=== PATIENT | female | born 1985 | race Caucasian/White ===

== ENCOUNTER 2022-09-22 11:43 | Inpatient (IN) | payer SELFPAY ==
[2022-09-22] VITALS (18 sets, daily range): BP systolic 123–159; BP diastolic 76–102; PULSE 70–116; RESP 14–20; TEMP 36.9–38.6; O2SAT 87–100; BMI 47.8
[2022-09-22] MEDS: ondansetron 2 mg/ML SDV 2 mL 4 MG IVP (13:04)
[2022-09-22] MEDS: morphine 4 mg/mL SDV 1 mL IVP (13:09)
[2022-09-22] MEDS: sodium chloride 0.9% 1,000 ML 999 ML IV (13:13)
--- NOTE | 2022-09-22 13:14 | CTR_ITS ---
PROCEDURE INFORMATION: Exam: CT Abdomen And Pelvis Without Contrast Exam date and time: 09/22/2022 2:16 PM Age: 37 years old Clinical indication: Abdominal pain; Flank; Left; Prior surgery; Surgery date: 6+ months; Additional info: Left flank pain TECHNIQUE: Imaging protocol: Computed tomography of the abdomen and pelvis without contrast. Radiation optimization: All CT scans at this facility use at least one of these dose optimization techniques: automated exposure control; mA and/or kV adjustment per patient size (includes targeted exams where dose is matched to clinical indication); or iterative reconstruction. COMPARISON: No relevant prior studies available. RADIATION DOSE METRICS: Total DLP (mGy-cm): 1414.17 FINDINGS: Liver: Findings consistent with fatty infiltration of the liver are identified. Gallbladder and bile ducts: There has been a cholecystectomy. Pancreas: Normal. No ductal dilation. Spleen: Normal. No splenomegaly. Adrenal glands: Normal. No mass. Kidneys and ureters: There is a 0.4 cm calcification at the left UVJ resulting in mild left hydroureteronephrosis. There is edema of the left kidney. No renal calcifications. Stomach and bowel: Unremarkable. No obstruction. No mucosal thickening. Appendix: No evidence of appendicitis. Intraperitoneal space: Unremarkable. No free air. No significant fluid collection. Vasculature: Unremarkable. No abdominal aortic aneurysm. Lymph nodes: Unremarkable. No enlarged lymph nodes. Urinary bladder: Unremarkable as visualized. Reproductive: Unremarkable as visualized. Bones/joints: Unremarkable. No acute fracture. Soft tissues: Unremarkable. CT/CT kidney stone [id number] IMPRESSION: There is a 0.4 cm calcification at the left UVJ resulting in mild left hydroureteronephrosis.
[2022-09-22 13:35] LABS: Basophils # 0.1 10^3/uL (0.0-0.1); Basophils % 0.6 %; Eosinophils # 0.2 10^3/uL (0.0-0.8); Eosinophils % 1.3 %; Hematocrit 36.3 % (37.0-47.0); Hemoglobin 12.2 g/dL (11.5-15.3); Lymphocytes # 1.7 10^3/uL (0.8-4.8); Lymphocytes % 12.2 %; Mean Corpuscular HGB Conc 33.6 g/dL (30.0-36.0); Mean Corpuscular Hemoglobin 29.5 pg (28.0-34.0); Mean Corpuscular Volume 87.9 fl (81-99); Mean Platelet Volume 10.4 fL (7.4-10.4); Monocytes # 0.6 10^3/uL (0.2-0.9); Monocytes % 4.6 %; Neutrophils # 10.96 10^3/uL (1.8-7.7); Neutrophils % 80.8 %; Nucleated Red Blood Cells % 0 %; Platelet Count 336 10^3/cmm (130-400); Red Blood Count 4.13 10^6/uL (4.1-5.3); Red Cell Distribution Width 13.6 % (12.1-15.1); White Blood Count 13.6 10^3/uL (4.0-10.0)
[2022-09-22] MEDS: HYDROmorphone 1 mg/mL INJ 1 mL IVP (13:55)
[2022-09-22 13:59] LABS: Alanine Aminotransferase 39 U/L (0-33); Albumin Level 4.5 g/dL (3.5-5.2); Alkaline Phosphatase 92 U/L (35-105); Aspartate Amino Transferase 26 U/L (0-32); Blood Urea Nitrogen 15 mg/dL (6-20); Calcium 9.2 mg/dL (8.5-10.5); Carbon Dioxide 19 mmol/L (22-29); Chloride 103 mmol/L (98-107); Globulin 2.8 g/dL (1.3-4.6); Glomerular Filtration Rate 95.2 mL/min (90-130); Glucose 149 mg/dL (65-115); Lipase 40 U/L (13-60); Osmolality Calculated 286 mOsm/kg (285-295); Sodium 136 mmol/L (136-145); Total Bilirubin 0.6 mg/dL (0.15-1.2); Total Protein 7.3 g/dL (6.6-8.7)
[2022-09-22 14:03] LABS: Anion Gap 18.3 (5-19); Potassium 4.3 mmol/L (3.5-5.1)
[2022-09-22 16:30] LABS: HCG Qualitative Urine. Negative (Negative)
[2022-09-22] MEDS: haloperidol inj 5 mg/mL INJ 1 mL IVP (16:36)
[2022-09-22 16:41] LABS: Add Urine Microscopic? YES; Bilirubin Urine Neg (Negative); Blood Urine 3+ (Negative); Glucose Urine UA Norm (Normal); Ketones Urine Negative (Negative); Leukocyte Esterase Urine 1+ (Negative); Nitrate Urine Positive (Negative); Protein Urine 1+ (Negative); RBC Urine 40-50 /hpf (0-2); Specific Gravity, Urine 1.015 (1.005-1.030); Urine Appearance Cloudy (CLEAR); Urine Color Yellow (Yellow); Urobilinogen Urine 1 mg/dL (Negative); WBC Urine 15-25 /hpf (0-5); pH Urine 6 (5-7)
[2022-09-22 16:42] LABS: Add Urine Culture? Yes; Bacteria Urine 4+ /hpf; Squamous Epithelial Cell Urine 0-4 /hpf (0-5)
[2022-09-22] MEDS: cefTRIAXone 1,000 MG in sodium chloride 0.9% (plus) 50 ML 100 MG IV (17:40)
--- NOTE | 2022-09-22 18:14 | P.HP_ITS ---
Providers/Chief Complaint Admitting Physician: Serena Sears MD Chief Complaint: lower left back/flank pain History of Present Illness Linda Mo is a 37 year old female without past medical history presented today for chief complaint of flank pain which started this morning. She was experiencing multiple episode of emesis, endorsing hot flashes however she did not take her temperature, endorsing urinary frequency and burning, she initially attributed her symptoms to her menstrual pain, took ibuprofen but her symptoms were not resolving, because of recurrent vomiting and abdominal pain she decided come to the hospital for further evaluation. In the ER she has been diagnosed with complicated UTI with 0.4 cm calcification at the left UVJ with left hydroureteronephrosis I have requested ER MEDICINE TEACHER to get Dr. Luna consult. Patient will be kept n.p.o. after midnight. No active signs of sepsis She has received opioids, IV fluids and antibiotics. Review of Systems Const: Reports: chills Eyes: Denies: change in vision ENMT: Denies: throat pain Card: Denies: chest pain Resp: Denies: dyspnea GI: Reports: abdominal pain, nausea and vomiting : Reports: flank pain, difficulty voiding and urinary frequency Musc: Denies: neck pain Skin/Breast: Denies: rash Neuro: Denies: headache(s) Psych: Denies: anxiety Endo: Denies: polyuria Bill/Lymph: Denies: easy bruising All/Imm: Denies: urticaria Medications/Allergies Home Medications Medication Instructions Recorded Confirmed Last Taken Type No Known Home Medications 09/22/22 09/22/22 Unknown History Allergies Allergy/AdvReac Type Severity Reaction Status Date / Time hydrocodone Allergy ADR-Nausea Verified 09/22/22 12:05 PFSH Acute PFSH: Medical History (Updated 09/22/22 @ 18:17 by Serena Sears MD) No pertinent past medical history Surgical History (Updated 09/22/22 @ 18:17 by Serena Sears MD) S/P cholecystectomy Tubal ligation status Family History (Updated 09/22/22 @ 18:18 by Serena Sears MD) Denies family history of CAD (coronary artery disease) Social History (Updated 09/22/22 @ 18:18 by Serena Sears MD) Smoking and tobacco status: never smoked Alcohol intake: never Substance/Drug Use: never Household members: spouse Housing: House Vitals/I&O/Wt Last Vital Signs Temp 98.6 F 09/22/22 12:06 Pulse 99 09/22/22 18:05 Resp 14 09/22/22 18:05 BP 145/101 09/22/22 18:00 Pulse Ox 96 09/22/22 18:05 O2 Del Method 09/22/22 18:05 O2 Flow Rate 2 09/22/22 18:00 09/22/22 09/22/22 09/22/22 06:59 14:59 22:59 Intake Total 1000 / 1000 Balance 1000 / 1000 Weight last 48 hrs Weight 136.078 kg Physical Exam Narrative: Motor abilities female Currently not in any active distress CVA tenderness positive Awake and alert Nonfocal neuro exam Hypertensive Doing well on room air Appropriate mood and affect at the bedside No audible stridor or wheezing S1, S2 Data 09/22/22 13:18 09/22/22 13:18 Micro: Microbiology 09/22/22 17:22 Blood Culture - Preliminary Blood SPECIMEN COLLECTED 09/22/22 17:27 Blood Culture - Preliminary Blood SPECIMEN COLLECTED A&P Assessment and plan (1) UTI (urinary tract infection): Plan Complicated UTI calcification left UVJ, left CVA tenderness positive Hydroureteronephrosis No active signs of sepsis Patient will be kept n.p.o. after midnight Dr. Luna consulted Continue ceftriaxone IV fluid hydration overnight Opioids and bowel regimen Full code Attestations Medical Necessity Statement*: More than 2 midnights anticipated more than 2 midnights anticipated Time Spent in Patient Care: 40 Coding Level of Care Code Acute Assistant Golf Course Superintendent for g Fwd Diagnoses UTI (urinary tract infection) N39.0
[2022-09-22 18:55] LABS: Procalcitonin 0.07 ng/mL (0-0.5)
[2022-09-22] MEDS: ketorolac 30 mg/mL INJ 15 MG IVP (20:00)
[2022-09-22] MEDS: sodium chloride 0.9% 1,000 ML 100 ML IV (20:01)
--- NOTE | 2022-09-22 20:39 | PM.CONSULT ---
Providers/Reason For Consult Consulting Physician/Specialty*: Urology/Luna Reason for Consult*: Left distal ureteral stone with UTI Requesting Physician: Dr. Sears Attending Physician: Serena Sears MD History of Present Illness History of Present Illness Linda Mo is a 37 year old female who I evaluated for the first time today after admission to the emergency department for acute onset earlier this morning of poorly controlled left renal colic secondary to a 4 mm left distal ureteral stone complicated by UTI in the absence of systemic infectious symptoms. Was not able to be managed on outpatient basis primarily because of her symptoms. Has been started on antibiotics. In addition to the renal colicky symptoms she also had irritative voiding symptoms probably customer solutions representative of UTI and/or stone in the distal ureteral location. Denies prior stones Denied any history of recurrent UTIs or any real obvious UTI type symptoms prior to the onset of pain. Denied fever. Work-up: CT scan showed mild obstructive changes from the distal ureteral stone. No additional stones were seen. UA: Nitrite positive. 15-25 white cells, Creatinine: 0.7 WBC: 13.6, hemoglobin 12.2. Vital signs since admission has shown low-grade temp, sustained blood pressure, no tachypnea or tachycardia. Plans: 1. Increase Rocephin to twice a day 2. Strain all void 3. Increase IV fluids 4. KUB in the morning 5. If she has not passed the stone then plan on at least cystoscopy and stent placement in the morning or if doing well from an infectious perspective cystoscopy, retrograde, ureteroscopy, laser, stent. Review of Systems Const: Denies: fever(s) Eyes: Denies: change in vision or yellow eyes ENMT: Denies: hoarseness Card: Denies: chest pain or palpitations Resp: Denies: dyspnea, productive cough or wheezing GI: Reports: abdominal pain, nausea and vomiting; Denies: diarrhea : Reports: flank pain and urinary frequency Musc: Reports: back pain; Denies: joint redness Skin/Breast: Denies: rash or new lesions Neuro: Denies: confusion, behavioral changes or Slurred speech present Psych: Denies: memory loss or difficulty concentrating Endo: Denies: polyuria or flushing Bill/Lymph: Denies: easy bruising or easy bleeding All/Imm: Denies: acute wheezing Medications/Allergies Home Medications Medication Instructions Recorded Confirmed Last Taken Type No Known Home Medications 09/22/22 09/22/22 Unknown History Allergies Allergy/AdvReac Type Severity Reaction Status Date / Time hydrocodone Allergy ADR-Nausea Verified 09/22/22 12:05 Current Medications Generic Name Dose Route Start Last Admin Trade Name Freq PRN Reason Stop Dose Admin Sodium Chloride 1,000 mls @ 100 mls/hr 09/22/22 18:56 09/22/22 20:01 Sodium Chloride 0.9% IV 100 mls/hr .Q10H TOO Administration Ketorolac Tromethamine 15 mg 09/22/22 18:56 09/22/22 20:00 Ketorolac 30 Mg/Ml Inj IVP 09/27/22 18:55 15 mg Q6H PRN Administration Renal colic PFSH Acute PFSH: Medical History (Updated 09/22/22 @ 20:47 by Joshua Luna MD) No pertinent past medical history UTI (urinary tract infection) Surgical History S/P cholecystectomy Tubal ligation status Family History Denies family history of CAD (coronary artery disease) Social History Smoking and tobacco status: never smoked Alcohol intake: never Substance/Drug Use: never Household members: spouse Housing: House Female Reproductive History: Date of last menstrual period: 09/22/22 Vitals/I&O/Wt Last Vital Signs Temp 99.7 F H 09/22/22 18:30 Pulse 98 09/22/22 18:30 Resp 18 09/22/22 18:30 BP 135/88 09/22/22 18:30 Pulse Ox 89 L 09/22/22 18:30 O2 Del Method 09/22/22 18:30 O2 Flow Rate 2 09/22/22 18:00 09/22/22 09/22/22 09/22/22 06:59 14:59 22:59 Intake Total 1050 / 1050 Balance 1050 / 1050 Weight last 48 hrs Weight 333 lb 4.8 oz Weight 300 lb Physical Exam Const: COMMON NORMALS: average body habitus, patient oriented x3, alert and well nourished GENERAL APPEARANCE: well kempt and well developed ORIENTATION/CONSCIOUSNESS: not confused OTHER: Morbid obesity No severe distress but is uncomfortable. HENMT: COMMON NORMALS: normocephalic HEAD & SCALP: normal to inspection and normocephalic Eye: COMMON NORMALS: conjunctivae normal and no scleral icterus CONJUNCTIVA: Yes conjunctivae normal Neck/C-Spine: GENERAL: Yes normal visual inspection Lymph: LYMPHATIC: no lymphadenopathy noted and no lymphedema noted Chest: OTHER: Normal chest movement Resp: COMMON NORMALS: normal respiratory effort EFFORT & INSPECTION: Yes able to speak in complete sentences, No labored and No Actively coughing OTHER: No audible wheezes, good air movement. Diminished breath sounds. Cardio: OTHER: Regular rate and rhythm could not hear any murmurs GI: OTHER: Tender left abdomen upper and lower : OTHER: Nondistended bladder Extremity: COMMON NORMALS: no clubbing, cyanosis or edema Neuro: COMMON NORMALS: patient oriented x3 and no focal motor deficits SENSORIUM/ORIENTATION: Yes alert Psych: COMMON NORMALS: mental status grossly normal APPEARANCE: Yes grossly normal and Yes well kempt ATTITUDE: Yes calm and Yes engaged Skin: COMMON NORMALS: no rashes or lesions noted and no jaundice GENERAL SKIN EXAM: no rashes or lesions noted Data 09/22/22 13:18 09/22/22 13:18 Micro: Microbiology 09/22/22 17:22 Blood Culture - Preliminary Blood SPECIMEN COLLECTED 09/22/22 17:27 Blood Culture - Preliminary Blood SPECIMEN COLLECTED Other data: I reviewed her CT scan and labs. A&P Assessment and plan (1) Left ureteral calculus: (2) UTI (urinary tract infection): No real symptoms of UTI leading up to the event. Plan 1. Increase Rocephin to twice a day 2. Strain all void 3. Increase IV fluids 4. KUB in the morning 5. If she has not passed the stone then plan on at least cystoscopy and stent placement in the morning or if doing well from an infectious perspective cystoscopy, retrograde, ureteroscopy, laser, stent. Consult Attestations Medical Necessity Statement: Refractory pain, left ureteral stone, UTI. IV fluids, parenteral antibiotics, likely surgical intervention in a.m. unless she passes a stone. Time Spent in Patient Care: Greater than 35 minutes Chart review, x-ray review, patient interview and counseling, documentation, surgical plan 65 Minutes Coding Level of Care Code Acute Wiring Mechanic for Chg Fwd Diagnoses Left ureteral calculus N20.1 UTI (urinary tract infection) N39.0 Time Spent (min) 65
--- NOTE | 2022-09-22 21:57 | W.ED.ABDPA2 ---
HPI - Abdominal Pain General: Chief Complaint: Abdominal Pain Stated Complaint: lower left back/flank pain Time Seen by Provider: 09/22/22 12:35 History of Present Illness: 37 yo female patient presents to ER with left sided flank pain onset today. Pt c/o nausea and vomiting. Pt denies hx of kidney stones or urinary sx. Pt denies fever. Pt states pain radiates around to side but denies abd pain. Pt denies chest pain or SOB. Associated Symptoms: Denies change in bowel habits, chills, constipation, GI cramping, diarrhea, dysuria, fever(s), hematuria, hematemesis and syncope Related Data: Date of Last Menstrual Period: 09/22/22 Review of Systems Const: Denies: fever(s), chills, body aches, change in appetite, change in weight, fatigue, malaise or diaphoresis Eyes: Denies: change in vision, blurry vision, blind spots, photophobia, eye discomfort, eye discharge, eye redness, floaters or seeing flashes ENMT: Denies: throat pain, uvular edema, enlarged tonsils, odynophagia, hoarseness, mouth pain, swelling of lips/tongue, oral sores, bleeding gums, dental pain, dry mouth, ear or mastoid pain, ear discharge, change in hearing, tinnitus, disequilibrium, nasal discharge, nasal congestion, post nasal drip or sinus pain Card: Denies: chest pain, palpitations, irregular heart rhythm, edema, swelling of feet/ankles, lightheadedness, syncope, pre-syncope, dyspnea on exertion, orthopnea, leg pain with exertion or acrocyanosis Resp: Denies: dyspnea, productive cough, non-productive cough, wheezing, stridor, pain on inspiration, change in phlegm color, hemoptysis or chest congestion GI: Denies: abdominal pain, hematemesis, dysphagia, diarrhea, constipation, GI cramping, change in bowel habits or rectal pain : Denies: difficulty voiding, dysuria, urinary frequency, urinary urgency, urinary hesitancy or hematuria Musc: Denies: neck pain, back pain, extremity pain, extremity swelling, joint pain, joint swelling, joint redness, joint warmth or deformity Skin/Breast: Denies: rash, pruritus, erythema, sores, new lesions, changes in skin color or dry skin Neuro: Denies: headache(s), numbness in extremities, weakness in extremities, sensory changes, lack of coordination, difficulty walking, frequent falls, dizziness, vertigo, confusion, behavioral changes, Slurred speech present, difficulty communicating thoughts or seizure-like activity Psych: Denies: anxiety, depression, suicidal ideation or homicidal ideation Endo: Denies: polyuria, polydipsia, tired all the time, cold intolerance, excessive sweating, flushing, hot flashes or heat intolerance Bill/Lymph: Denies: easy bruising, easy bleeding, petechiae, purpura, enlarged lymph nodes or tender lymph nodes All/Imm: Denies: urticaria, throat swelling, tongue swelling, facial swelling, acute wheezing or itchy eyes PFSH ED PFSH: Medical History No pertinent past medical history UTI (urinary tract infection) Surgical History S/P cholecystectomy Tubal ligation status Family History Denies family history of CAD (coronary artery disease) Social History Smoking and tobacco status: never smoked Alcohol intake: never Substance/Drug Use: never Household members: spouse Housing: House Female Reproductive History: Date of last menstrual period: 09/22/22 Physical Exam Const: COMMON NORMALS: no acute distress, average body habitus, patient oriented x3, no limitations, healthy appearing, alert and well nourished HENMT: COMMON NORMALS: normocephalic HEAD & SCALP: normocephalic THROAT: no uvular edema Lymph: LYMPHATIC: no lymphadenopathy noted Resp: COMMON NORMALS: normal respiratory effort, No retractions, No use of accessory muscles, clear to auscultation bilaterally and percussion normal AUSCULTATION: clear to auscultation bilaterally PERCUSSION: percussion normal Cardio: COMMON NORMALS: regular rate and regular rhythm RATE: regular rate RHYTHM: regular rhythm GI: COMMON NORMALS: Normal to inspection, nondistended, normoactive bowel sounds present, Soft to palpation, non-tender, No hepatosplenomegaly present, no masses and no bruits PALPATION: Yes Soft to palpation and Yes No hepatosplenomegaly present : BLADDER/KIDNEY EXAM: Yes CVA tenderness Back/Pelvis: GENERAL BACK: Yes CVA tenderness Neuro: COMMON NORMALS: patient oriented x3 SENSORIUM/ORIENTATION: Yes alert Skin: COMMON NORMALS: no rashes or lesions noted and turgor normal GENERAL SKIN EXAM: no rashes or lesions noted, elasticity normal, turgor normal and no erythema Course Vital Signs: Vital signs: Vital Signs Temperature 101.4 F H 09/22/22 20:00 Pulse Rate 112 H 09/22/22 21:53 Respiratory Rate 14 09/22/22 21:53 Blood Pressure 128/80 09/22/22 20:00 Pulse Oximetry 92 09/22/22 21:53 Oxygen Delivery Me thod 09/22/22 21:53 Oxygen Flow Rate 2 09/22/22 18:00 MDM - Abdominal Pain Medical Decision Making 37 yo female patient presents to ER with left sided flank pain onset today. Pt c/o nausea and vomiting. Pt denies hx of kidney stones or urinary sx. Pt denies fever. Pt states pain radiates around to side but denies abd pain. Pt denies chest pain or SOB. Pt continues to cry out in pain. Pt took motrin CONDUIT BENDER. Morphine and zofran given without relief. will try diaudid. Ct shows 4mm renal stone in the UVG with mild hdro urine is nitrate positive. Pts pain is still not controlled at this time pt is actively vominting. 1 liter normal saline given will give Haldol. Given patients pain is not controlled I will plan to admit at this time. Dr. Luna consulted on patient Lab Data 09/22/22 13:18 09/22/22 13:18 Labs/Radiology: Radiology Impressions Abdomen/Pelvis CT 09/22/22 13:14 IMPRESSION: There is a 0.4 cm calcification at the left UVJ resulting in mild left hydroureteronephrosis. Laboratory Results WBC 13.6 10^3/uL (4.0-10.0) H 09/22/22 13:18 RBC 4.13 10^6/uL (4.1-5.3) 09/22/22 13:18 Hgb 12.2 g/dL (11.5-15.3) 09/22/22 13:18 Hct 36.3 % (37.0-47.0) L 09/22/22 13:18 MCV 87.9 fl (81-99) 09/22/22 13:18 MCH 29.5 pg (28.0-34.0) 09/22/22 13:18 MCHC 33.6 g/dL (30.0-36.0) 09/22/22 13:18 RDW 13.6 % (12.1-15.1) 09/22/22 13:18 Plt Count 336 10^3/cmm (130-400) 09/22/22 13:18 MPV 10.4 fL (7.4-10.4) 09/22/22 13:18 Neut % (Auto) 80.8 % 09/22/22 13:18 Lymph % (Auto) 12.2 % 09/22/22 13:18 [place] % (Auto) 4.6 % 09/22/22 13:18 Eos % (Auto) 1.3 % 09/22/22 13:18 Baso % (Auto) 0.6 % 09/22/22 13:18 Neut # (Auto) 10.96 10^3/uL (1.8-7.7) H 09/22/22 13:18 Lymph # (Auto) 1.7 10^3/uL (0.8-4.8) 09/22/22 13:18 [place] # (Auto) 0.6 10^3/uL (0.2-0.9) 09/22/22 13:18 Eos # (Auto) 0.2 10^3/uL (0.0-0.8) 09/22/22 13:18 Baso # (Auto) 0.1 10^3/uL (0.0-0.1) 09/22/22 13:18 Nucleated RBC % (auto) 0 % 09/22/22 13:18 Nucleated RBCs # 0.0 /100WBC 09/22/22 13:18 Sodium 136 mmol/L (136-145) 09/22/22 13:18 Potassium 4.3 mmol/L (3.5-5.1) 09/22/22 13:18 Chloride 103 mmol/L (98-107) 09/22/22 13:18 Carbon Dioxide 19 mmol/L (22-29) L 09/22/22 13:18 Anion Gap 18.3 (5-19) 09/22/22 13:18 BUN 15 mg/dL (6-20) 09/22/22 13:18 Creatinine 0.7 mg/dL (0.5-0.9) 09/22/22 13:18 GFR Calculation 95.2 mL/min (90-130) 09/22/22 13:18 Glucose 149 mg/dL (65-115) H 09/22/22 13:18 Calculated Osmolality 286 mOsm/kg (285-295) 09/22/22 13:18 Calcium 9.2 mg/dL (8.5-10.5) 09/22/22 13:18 Total Bilirubin 0.6 mg/dL (0.15-1.2) 09/22/22 13:18 AST 26 U/L (0-32) 09/22/22 13:18 ALT 39 U/L (0-33) H 09/22/22 13:18 Alkaline Phosphatase 92 U/L (35-105) 09/22/22 13:18 Total Protein 7.3 g/dL (6.6-8.7) 09/22/22 13:18 Albumin 4.5 g/dL (3.5-5.2) 09/22/22 13:18 Globulin 2.8 g/dL (1.3-4.6) 09/22/22 13:18 Lipase 40 U/L (13-60) 09/22/22 13:18 Procalcitonin 0.07 ng/mL (0-0.5) 09/22/22 13:15 HCG, Qual Negative (Negative) 09/22/22 16:18 Urine Color Yellow (Yellow) 09/22/22 16:18 Urine Appearance Cloudy (CLEAR) A 09/22/22 16:18 Urine pH 6 (5-7) 09/22/22 16:18 Ur Specific [place] 1.015 (1.005-1.030) 09/22/22 16:18 Urine Protein 1+ (Negative) H 09/22/22 16:18 Urine Glucose (UA) Norm (Normal) 09/22/22 16:18 Urine Ketones Negative (Negative) 09/22/22 16:18 Urine Blood 3+ (Negative) H 09/22/22 16:18 Urine Nitrate Positive (Negative) H 09/22/22 16:18 Urine Bilirubin Neg (Negative) 09/22/22 16:18 Urine Urobilinogen 1 mg/dL (Negative) H 09/22/22 16:18 Ur Leukocyte Esterase 1+ (Negative) H 09/22/22 16:18 Urine RBC 40-50 /hpf (0-2) H 09/22/22 16:18 Urine WBC 15-25 /hpf (0-5) H 09/22/22 16:18 Ur Squamous Epith Cells 0-4 /hpf (0-5) H 09/22/22 16:18 Amorphous Sediment Not Reportable 09/22/22 16:18 Urine Bacteria 4+ /hpf (NONE) H 09/22/22 16:18 Discharge Plan Discharge Patient Disposition: Admitted As Inpatient Admit Provider: Serena Sears Clinical Impression: Left ureteral calculus Coding Level of Care Code ED Store Receiving Clerk for Jose M Malhotra
[2022-09-22 22:09] LABS: Estmated Average Glucose 108; Hemoglobin A1C 5.4 % (4.0-6.0)
[2022-09-22] MEDS: acetaminophen 500 mg Tablet PO (23:50)
[2022-09-23] VITALS (18 sets, daily range): BP systolic 100–128; BP diastolic 52–88; PULSE 89–103; RESP 16–20; TEMP 36.5–37.4; O2SAT 92–97
[2022-09-23] MEDS: ketorolac 30 mg/mL INJ 15 MG IVP (03:45)
[2022-09-23] MEDS: sodium chloride 0.9% 1,000 ML 150 ML IV (03:45)
--- NOTE | 2022-09-23 04:17 | PC.NURSE ---
Patients states she was told had a reaction to anesthesia in the past but states it was because she was given hydrocodone which she is allergic to.
[2022-09-23] MEDS: cefTRIAXone 1,000 MG in sodium chloride 0.9% (plus) 50 ML 100 MG IV ×2 (05:34→17:37)
--- NOTE | 2022-09-23 06:00 | XRR_ITS ---
PROCEDURE INFORMATION: Exam: XR Abdomen Exam date and time: 09/23/2022 6:30 AM Age: 37 years old Clinical indication: Other: Back pain; Prior surgery; Surgery type: Gb; Additional info: F/u left uvj stone TECHNIQUE: Imaging protocol: Radiologic exam of the abdomen. Views: Frontal supine view of the abdomen. 1 View. COMPARISON: CT kidney stone [id number] 09/22/2022 2:16 PM FINDINGS: Gastrointestinal tract: Normal. No bowel dilation. Organs: Cholecystectomy clips. Similar tiny calcification projecting over the left aspect of the pelvis, which may be positioned at the left ureterovesical junction. Bones/joints: Unremarkable. XR/XR KUB [id number] IMPRESSION: Similar tiny calcification projecting over the left aspect of the pelvis, which may be positioned at the left ureterovesical junction.
--- NOTE | 2022-09-23 07:12 | P.MISC_ITS ---
Miscellaneous Note Note: Hospital day #2, urology follow-up Still symptomatic. Has not passed the stone. No septic symptoms. Has been afebrile since about 8 PM last night. KUB reviewed this morning and there is a calcification consistent with a stone seen on CT scan in roughly the same position. Reviewed our conversation again last night with the procedure plan being a cystoscopy, left retrograde ureteroscopy laser stent. Also reviewed that she will have a stent in place when she goes back to [place] and the importance of having it removed. She agreed to proceed as planned. No contraindications to surgery.
[2022-09-23] MEDS: sodium chloride 0.9% 1,000 ML 30 ML IV (07:39)
--- NOTE | 2022-09-23 07:41 | ANES.PREANE2 ---
Pre-Anesthetic Assessment Height/Weight: Height 1.78 m Weight 151.182 kg Temp Pulse Resp BP Pulse Ox O2 Del Method O2 Flow Rate 99.4 F 102 H 20 H 117/88 96 2 09/23/22 07:05 09/23/22 07:05 09/23/22 07:05 09/23/22 07:05 09/23/22 07:05 09/23/22 07:05 09/22/22 18:00 Operation Date: 09/23/22 08:00 Proposed Procedures p Cystoscopy(Not Applicable) - Joshua Luna MD s Retrograde Pyelogram(Left) - Joshua Luna MD s Ureteroscopy(Left) - Joshua Luna MD s Laser Lithotripsy(Left) - Joshua Luna MD s Ureteral Stent Placement(Left) - Joshua Luna MD Familial anesthetic complications: none- PONV Was Beta Magdy taken within 24 hours: N/A Was Clonidine taken within 24 hours: N/A Last intake: Intake Last Liquid Date 09/22/22 Last Liquid Time 23:00 Social No alcohol and No tobacco Airway Submandibular: within normal limits Cervical ROM: within normal limits Mallampati: Class III Dentition: full Pulmonary None reported CV/HEM None reported None reported current stone no other issues Hepatic None reported GI None reported Metabolic Morbid Obesity Musc/skel None reported Neuropsych Anxiety Anesthetic Plan ASA status: 2 Anesthesia: General Medications/Allergies Home Medications Medication Instructions Recorded Confirmed Last Taken Type No Known Home Medications 09/22/22 09/22/22 Unknown History Allergies Allergy/AdvReac Type Severity Reaction Status Date / Time hydrocodone Allergy ADR-Nausea Verified 09/22/22 12:05 Current Medications Generic Name Dose Route Start Last Admin Trade Name Freq PRN Reason Stop Dose Admin Acetaminophen 500 mg 09/22/22 18:56 09/22/22 23:50 Acetaminophen 500 Mg Tablet PO 500 mg Q4H PRN Administration fever Sodium Chloride 1,000 mls @ 150 mls/hr 09/22/22 18:56 09/23/22 03:45 Sodium Chloride 0.9% IV 150 mls/hr .Q6H40M TOO Administration Ceftriaxone Sodium 1,000 mg/ 50 mls @ 100 mls/hr 09/23/22 06:00 09/23/22 06:07 Sodium Chloride IV Infused Q12H TOO Infusion Protocol Sodium Chloride 1,000 mls @ 30 mls/hr 09/23/22 07:45 09/23/22 07:39 Sodium Chloride 0.9% IV 09/24/22 07:44 30 mls/hr .Q24H TOO Administration Ketorolac Tromethamine 15 mg 09/22/22 18:56 09/23/22 03:45 Ketorolac 30 Mg/Ml Inj IVP 09/27/22 18:55 15 mg Q6H PRN Administration Renal colic PFSH Anesthesia Medical History No pertinent past medical history UTI (urinary tract infection) Surgical History S/P cholecystectomy Tubal ligation status Family History Denies family history of CAD (coronary artery disease) Social History Smoking and tobacco status: never smoked Alcohol intake: never Substance/Drug Use: never Household members: spouse Housing: House Female Reproductive History Date of last menstrual period: 09/22/22 Data Anesthesia 09/22/22 13:18 09/22/22 13:18 Short CBC 09/22/22 Range/Units 13:18 WBC 13.6 H (4.0-10.0) 10^3/uL Hgb 12.2 (11.5-15.3) g/dL Hct 36.3 L (37.0-47.0) % MCV 87.9 (81-99) fl Plt Count 336 (130-400) 10^3/cmm Neut % (Auto) 80.8 % Neut # (Auto) 10.96 H (1.8-7.7) 10^3/uL BMP 09/22/22 13:18 Sodium 136 Potassium 4.3 Chloride 103 Carbon Dioxide 19 L BUN 15 Creatinine 0.7 Glucose 149 H Calcium 9.2 Liver Function 09/22/22 Range/Units 13:18 Total Bilirubin 0.6 (0.15-1.2) mg/dL AST 26 (0-32) U/L ALT 39 H (0-33) U/L Alkaline Phosphatase 92 (35-105) U/L Albumin 4.5 (3.5-5.2) g/dL Urine 09/22/22 Range/Units 16:18 Urine Color Yellow (Yellow) Urine Appearance Cloudy A (CLEAR) Urine pH 6 (5-7) Ur Specific [place] 1.015 (1.005-1.030) Urine Protein 1+ H (Negative) Urine Glucose (UA) Norm (Normal) Urine Ketones Negative (Negative) Urine Nitrate Positive H (Negative) Urine Bilirubin Neg (Negative) Ur Leukocyte Esterase 1+ H (Negative) Urine RBC 40-50 H (0-2) /hpf Urine WBC 15-25 H (0-5) /hpf Microbiology 09/22/22 17:22 Blood Culture - Preliminary Blood SPECIMEN COLLECTED 09/22/22 17:27 Blood Culture - Preliminary Blood SPECIMEN COLLECTED Cardiac Studies: No Data to Display
--- NOTE | 2022-09-23 07:53 | SC_ITS ---
WS: [id number] C-ARM RADIOGRAPHS AFTER; 2 IMAGES HISTORY: LEFT ureteroscopy, stone extraction, ureteral stent COMPARISON: None available. Intraoperative imaging during ureteroscopy. Very little detail. There is a pigtail catheter in the ce ntral portion of the image. SC/C-arm FL for Urology IMPRESSION: Intraoperative imaging during ureteroscopy.
--- NOTE | 2022-09-23 08:02 | PM.OP ---
Operative Report Date of procedure: September 23, 2022 Pre-op diagnosis: Refractory symptoms related to left distal ureteral stone Post-op diagnosis: Refractory symptoms related to left distal ureteral stone Procedure done: 1. Cystoscopy, LEFT: Retrograde ureteropyelogram 2. LEFT ureteroscopy, stone extraction, ureteral stent Implants: Left ureteral stent 6 [place] by 28 cm double-pigtail without string Specimens removed/disposition: Stone Pathology: Ureteral stone Surgeon: Cheryl Estimated blood loss: Minimal Urine output: Not measured Complications: None Findings: Anesthesia: General Condition: Stable Disposition: PACU Intraoperative findings: CYSTITIS CYSTICA Stone in the expected position. Retrieved Stent left indwelling Tolerated well Brief History: Linda is a 37-year-old white female from [place] near the [facility], visiting family in [place]. Developed acute onset of left renal colicky type symptoms with about a severe pain that she is ever had. No prior stones. CT scan revealed a small calcification in the left distal ureter with obstructive changes. Her urine did look infected and at the time she had no systemic symptoms. She was placed on antibiotics and was elected initially to treat conservatively with IV antibiotics pain medication to see if she could pass the stone in the absence of any significant infectious symptoms. She failed to do so still having symptoms and elected to proceed with intervention due to her logistics of impending travel back to [place], as well as the potential infectious concerns. We elected intervention via endoscopy possible laser lithotripsy and stent. Procedure: After urgent evaluation examination and obtaining of informed consent she was taken to the operating suite on 09/23/2022 where general anesthesia was administered without difficulty after appropriate timeout was performed, SCDs confirmed to be functioning, preoperative antibiotics administered, beta-mauricio protocol confirmed. Prepped and draped in the usual sterile fashion in dorsolithotomy position paying careful attention to avoiding pressure points. 21 [place] Island[place] cystoscope with 30 degree lens was introduced to the urethra meatus and advanced into the bladder to videoscopy. No stone was seen. Bladder showed diffuse CYSTITIS CYSTICA. An 8 [place] cone-tip catheter was intubated into the left ureteral orifice for low pressure LEFT RETROGRADE URETEROGRAM demonstrating: Filling of the distal most 2 inches of the ureter confirming filling defect consistent with a stone seen on CT scan and KUB. No contrast was pushed beyond that point A flexible tip guidewire was then advanced up the left ureter bypassing the stone easily in the distal ureter was dilated with a 15 [place] Islander 4 cm balloon with no waist. The wire was secured to the drapes as a safety wire. A 7 [place] offset semirigid ureteroscope was advanced up the left ureter next to the safety wire and the stone was encountered in its expected position. Stone was secured in grasping forceps and removed without difficulty. Scope was repassed up the left ureter. No additional stones were seen. Cystoscope was then backloaded over the guidewire and a 6 [place] Island[place] by 28 cm double-pigtail stent was advanced over the guidewire through the cystoscope into appropriate position as confirmed via fluoroscopy and cystoscopy. Stent was confirmed to be draining. Bladder was drained and the procedure was completed. She tolerated procedure well without complications and was awakened in the operating room and returned to the recovery room in stable condition. PLANS: 1. Observe for any concerns related to infectious progression 2. Discharge when deemed safe by hospitalist service. 3. She will be given a course of oral antibiotics for several weeks more appropriate for her chronic cystitis picture identified today. 4. She will need to follow-up with urology closer to her home for stent removal sometime within the next 7 to 10 days roughly.
--- NOTE | 2022-09-23 09:53 | P.PN_ITS ---
Subjective Subjective: Single episode of fever overnight, I do not have CBC and BMP from today she has been taken to the OR for ureteral stent placement I have requested a lactic acid, Vitals/I&O/Wt Last Vital Signs Temp 97.9 F 09/23/22 09:15 Pulse 96 09/23/22 09:15 Resp 18 09/23/22 09:15 BP 118/73 09/23/22 09:15 Pulse Ox 96 09/23/22 09:15 O2 Del Method 09/23/22 09:15 O2 Flow Rate 2 09/23/22 09:15 09/22/22 09/23/22 09/23/22 22:59 06:59 14:59 Intake Total 1470 / 1470 870 / 2340 50 / 50 Output Total 400 / 400 500 / 900 0 / 0 Balance 1070 / 1070 370 / 1440 50 / 50 Weight last 48 hrs Weight 151.182 kg Weight 136.078 kg Physical Exam Narrative: Morbid obese female On 2 L nasal cannula Abdomen with severe tenderness No signs of edema EOMI, PERRLA Nonfocal neuro exam S1, S2 No signs of dehydration Data 09/22/22 13:18 09/22/22 13:18 Micro: Microbiology 09/22/22 16:18 Urine Culture - Preliminary Urine,Clean Catch Gram Negative Rods 09/22/22 17:22 Blood Culture - Preliminary Blood 09/22/22 17:27 Blood Culture - Preliminary Blood A&P Assessment and plan (1) UTI (urinary tract infection): (2) Left ureteral calculus: Plan UTI with left ureteral calculus Patient is in the OR for ureteral stent placement Single episode of fever noted overnight With leukocytosis tachycardia I have requested lactic acid to rule out sepsis No endorgan damage signs for now Continue IV fluids Continue ceftriaxone Dr. Luna has recommended 2 g daily She can need after her procedure We can start DVT prophylaxis 6 to 8 hours after her procedure Opioids Bowel regimen Full code Regular diet after procedure Attestations Medical Necessity Statement*: Continue medical management Time Spent in Patient Care: 40 Coding Level of Care Code Acute Mechanical Tech for g Fwd Diagnoses UTI (urinary tract infection) N39.0 Left ureteral calculus N20.1
--- NOTE | 2022-09-23 11:00 | ANE.PACU2 ---
Inpatient post-anesthesia follow up: Airway intact: Yes Vital signs: Temperature 98.9 F Pulse Rate 90 Respiratory Rate 16 Blood Pressure 105/67 Pulse Oximetry 97 Oxygen Delivery Me thod Room Air Oxygen Flow Rate 2 Fraction of Inspir ed Oxygen Hydration adequate: Yes Nausea and vomiting: No Pain level: 1 Mental status: Baseline
[2022-09-23 11:15] LABS: Acinetobacter baumannii Not Detected (NOT DETECT); Bacteroides fragilis Not Detected (NOT DETECT); CTX-M Not Detected (NOT DETECT); Citrobacter Not Detected (NOT DETECT); Cronobacter sakazakii Not Detected (NOT DETECT); Enterobacter cloacae complex Not Detected (NOT DETECT); Enterobacter non cloacae Not Detected (NOT DETECT); Fusobacterium necrophorum Not Detected (NOT DETECT); Fusobacterium nucleatum Not Detected (NOT DETECT); Haemophilus influenzae Not Detected (NOT DETECT); IMP Resistance Gene Not Detected (NOT DETECT); KPC Resistance Gene Not Detected (NOT DETECT); Klebsiella pneumoniae group Not Detected (NOT DETECT); Morganella morganii Not Detected (NOT DETECT); NDM Resistance Gene Not Detected (NOT DETECT); Neisseria meningitidis Not Detected (NOT DETECT); OXA Resistance Gene Not Detected (NOT DETECT); Pan Candida Not Detected (NOT DETECT); Pan Gram-Positive Not Detected (NOT DETECT); Proteus mirabilis Not Detected (NOT DETECT); Pseudomonas aeruginosa Not Detected (NOT DETECT); Salmonella Not Detected (NOT DETECT); Serratia Not Detected (NOT DETECT); Serratia marcescens Not Detected (NOT DETECT); Stenotrophomonas maltophilia Not Detected (NOT DETECT); VIM Resistance Gene Not Detected (NOT DETECT)
[2022-09-23] MEDS: sodium chloride 0.9% 1,000 ML 100 ML IV ×2 (12:58→17:36)
[2022-09-23] MEDS: acetaminophen 500 mg Tablet PO ×2 (13:49→20:14)
[2022-09-23] MEDS: sennosides-docusate Tablet 1 TAB PO (17:38)
[2022-09-23 22:41] LABS: Basophils % 0.3 %; Eosinophils % 0.4 %; Hematocrit 28.1 % (37.0-47.0); Hemoglobin 9.1 g/dL (11.5-15.3); Lymphocytes # 0.9 10^3/uL (0.8-4.8); Lymphocytes % 8.7 %; Mean Corpuscular HGB Conc 32.4 g/dL (30.0-36.0); Mean Corpuscular Hemoglobin 29.7 pg (28.0-34.0); Mean Corpuscular Volume 91.8 fl (81-99); Mean Platelet Volume 10.2 fL (7.4-10.4); Monocytes # 0.8 10^3/uL (0.2-0.9); Monocytes % 7.9 %; Neutrophils # 8.44 10^3/uL (1.8-7.7); Neutrophils % 82.3 %; Nucleated Red Blood Cells % 0 %; Platelet Count 186 10^3/cmm (130-400); Red Blood Count 3.06 10^6/uL (4.1-5.3); Red Cell Distribution Width 14.4 % (12.1-15.1); White Blood Count 10.3 10^3/uL (4.0-10.0)
[2022-09-23 22:58] LABS: Lactate (Lactic Acid level) 0.9 mmol/L (0.5-2.2)
[2022-09-23 23:08] LABS: Anion Gap 10.7 (5-19); Blood Urea Nitrogen 14 mg/dL (6-20); C Reactive Protein 226.1 mg/L (0.0-4.9); Calcium 8.5 mg/dL (8.5-10.5); Carbon Dioxide 24 mmol/L (22-29); Chloride 104 mmol/L (98-107); Glomerular Filtration Rate 81.6 mL/min (90-130); Glucose 144 mg/dL (65-115); Osmolality Calculated 283 mOsm/kg (285-295); Potassium 3.7 mmol/L (3.5-5.1); Sodium 135 mmol/L (136-145)
[2022-09-24] MEDS: sodium chloride 0.9% 1,000 ML 100 ML IV (03:37)
[2022-09-24 04:00] VITALS: BP 125/72; PULSE 90; RESP 17; TEMP 37.2; O2SAT 96
[2022-09-24] MEDS: cefTRIAXone 1,000 MG in sodium chloride 0.9% (plus) 50 ML 100 MG IV ×2 (05:26→18:30)
--- NOTE | 2022-09-24 06:37 | PM.PN ---
Subjective Subjective: Positive blood culture for gram-negative rods, repeat blood cultures today No sign of sepsis, afebrile since single episode Dr. Luna has recommended 3 weeks of antibiotics, Lactic acid is normal Repeat H&H Patient is complaining of myalgia and headache responding to Toradol Vitals/I&O/Wt Last Vital Signs Temp 99 F 09/24/22 04:00 Pulse 90 09/24/22 04:00 Resp 17 09/24/22 04:00 BP 125/72 09/24/22 04:00 Pulse Ox 96 09/24/22 04:00 O2 Del Method 09/23/22 20:00 O2 Flow Rate 2 09/23/22 09:15 09/23/22 09/23/22 09/24/22 14:59 22:59 06:59 Intake Total 2490 / 2490 1753.333 / 4243.333 1050 / 5293.333 Output Total 1100 / 1100 1750 / 2850 700 / 3550 Balance 1390 / 1390 3.333 / 1393.333 350 / 1743.333 Weight last 48 hrs Weight 151.182 kg Weight 136.078 kg Physical Exam Narrative: Morbid obese female No active signs of emesis Currently doing well on room air S1, S2 Euvolemic EOMI, PERRLA Nonfocal neuro exam No signs of edema CVA tenderness improvement Planing of myalgia Data 09/23/22 22:30 09/23/22 22:30 Micro: Microbiology 09/22/22 17:22 Blood Culture - Preliminary Blood Escherichia coli 09/22/22 17:27 Blood Culture - Preliminary Blood Escherichia coli 09/22/22 16:18 Urine Culture - Preliminary Urine,Clean Catch Gram Negative Rods A&P Assessment and plan (1) UTI (urinary tract infection): (2) Left ureteral calculus: (3) Bacteremia: Plan Left ureteral calculus, UTI, bacteremia, Gram-negative rods, repeat cultures today Continue ceftriaxone 2 g daily Afebrile No sign of sepsis Patient will need prolonged course of oral antibiotics at discharge Full code Regular diet DVT prophylaxis could be resumed Patient will stay in the hospital until culture sensitivity report is finalized Blood cultures will also take 48 hours which are drawn on 09/24 Attestations Medical Necessity Statement*: Continue medical management Time Spent in Patient Care: 30 Coding Level of Care Code Acute Fence Installer Helper for g Fwd Diagnoses UTI (urinary tract infection) N39.0 Left ureteral calculus N20.1 Bacteremia R78.81
[2022-09-24] MEDS: ketorolac 30 mg/mL INJ 15 MG IVP (07:42)
[2022-09-24] MEDS: sennosides-docusate Tablet 1 TAB PO ×2 (07:43→18:30)
[2022-09-24 07:52] VITALS: BP 108/69; PULSE 90; RESP 15; TEMP 36.6; O2SAT 94
[2022-09-24 07:55] VITALS: PULSE 89; RESP 16; O2SAT 96
[2022-09-24 10:01] LABS: Basophils % 0.4 %; Eosinophils # 0.1 10^3/uL (0.0-0.8); Eosinophils % 1.3 %; Hematocrit 26.8 % (37.0-47.0); Hemoglobin 8.5 g/dL (11.5-15.3); Lymphocytes % 14.9 %; Mean Corpuscular HGB Conc 31.7 g/dL (30.0-36.0); Mean Corpuscular Hemoglobin 29.4 pg (28.0-34.0); Mean Corpuscular Volume 92.7 fl (81-99); Mean Platelet Volume 10.3 fL (7.4-10.4); Monocytes # 0.5 10^3/uL (0.2-0.9); Monocytes % 6.6 %; Neutrophils # 5.33 10^3/uL (1.8-7.7); Neutrophils % 76.2 %; Nucleated Red Blood Cells % 0 %; Platelet Count 174 10^3/cmm (130-400); Red Blood Count 2.89 10^6/uL (4.1-5.3); Red Cell Distribution Width 14.5 % (12.1-15.1)
[2022-09-24 10:30] LABS: Anion Gap 14.4 (5-19); Blood Urea Nitrogen 11 mg/dL (6-20); Calcium 7.8 mg/dL (8.5-10.5); Carbon Dioxide 24 mmol/L (22-29); Chloride 105 mmol/L (98-107); Glomerular Filtration Rate 81.6 mL/min (90-130); Glucose 251 mg/dL (65-115); Osmolality Calculated 298 mOsm/kg (285-295); Potassium 3.4 mmol/L (3.5-5.1); Sodium 140 mmol/L (136-145)
--- NOTE | 2022-09-24 11:02 | P.PN_ITS ---
Subjective Subjective: Urology follow-up: Postop day #1 ureteroscopic stone extraction left distal ureteral stone Blood cultures are positive. Final sensitivities pending. Clinically she has been doing well. No evidence of progressive hemodynamic instability etc. White count is better. Much more lucid today. Typical stent symptoms. I reviewed with her the events since her hospitalization since she was not completely with that at our first interview and since. Reviewed the importance of removing the stent. She is thinking she might stay in the area until its time for her to be removed about a week from today. 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 She did admit that she has had foul-smelling odor of urine intermittently but cannot really relate any significant chronic cystitis symptoms but did report about 12 years ago while she was she had an infection that did not clear and after the baby was delivered she never really got it further pursued. I would not be surprised if she had some baseline symptoms that she has been considering normal. Reviewed the importance of follow-up on the infection once she returns to [place]. Discussed prolonged course of antibiotics for chronic cystitis cystica. Vitals/I&O/Wt Last Vital Signs Temp 97.8 F 09/24/22 07:52 Pulse 89 09/24/22 07:55 Resp 16 09/24/22 07:55 BP 108/69 09/24/22 07:52 Pulse Ox 96 09/24/22 07:55 O2 Del Method 09/24/22 07:55 O2 Flow Rate 2 09/23/22 09:15 09/23/22 09/24/22 09/24/22 22:59 06:59 14:59 Intake Total 1753.333 / 4243.333 1360 / 5603.333 240 / 240 Output Total 1750 / 2850 700 / 3550 Balance 3.333 / 1393.333 660 / 2053.333 240 / 240 Weight last 48 hrs Weight 333 lb 4.8 oz Weight 300 lb Physical Exam Const: COMMON NORMALS: average body habitus, patient oriented x3, alert and well nourished GENERAL APPEARANCE: well kempt and well developed ORIENTATION/CONSCIOUSNESS: not confused HENMT: OTHER: Atraumatic Neck/C-Spine: OTHER: Good range of motion Lymph: LYMPHATIC: no lymphadenopathy noted and no lymphedema noted Chest: OTHER: Normal chest movement Resp: COMMON NORMALS: normal respiratory effort EFFORT & INSPECTION: Yes able to speak in complete sentences, No labored and No Actively coughing Extremity: COMMON NORMALS: no clubbing, cyanosis or edema Neuro: COMMON NORMALS: patient oriented x3 and no focal motor deficits SENSORIUM/ORIENTATION: Yes alert OTHER: Nonfocal exam Psych: COMMON NORMALS: mental status grossly normal APPEARANCE: Yes grossly normal and Yes well kempt ATTITUDE: Yes calm and Yes engaged INSIGHT: Good insight present (Psych) JUDGEMENT: Good judgement present (Psych) Skin: COMMON NORMALS: no rashes or lesions noted and no jaundice GENERAL S KIN EXAM: no rashes or lesions noted Data 09/24/22 09:39 09/24/22 09:39 Micro: Microbiology 09/24/22 10:10 Blood Culture - Preliminary Blood SPECIMEN COLLECTED 09/24/22 09:39 Blood Culture - Preliminary Blood SPECIMEN COLLECTED 09/22/22 17:22 Blood Culture - Preliminary Blood Escherichia coli 09/22/22 17:27 Blood Culture - Preliminary Blood Escherichia coli 09/22/22 16:18 Urine Culture - Preliminary Urine,Clean Catch Gram Negative Rods A&P Assessment and plan (1) Bacteremia: (2) Left ureteral calculus: Endoscopically removed yesterday. Doing well. Stent in place. (3) Cystitis cystica: Discussed the findings of cystitis cystica identified on cystoscopy. The importance of prolonged course of antibiotics was reviewed. Encouraged her to focus on her symptoms prior to becoming sick and how she feels at the end of the course of antibiotics to make decisions about whether to continue or not. (4) Retained ureteral stent: Needs to be removed in about a week to 10 days. I told her I be happy to do it if she stays in the area or that she could seek urologic care closer to home once she returns to [place]. No compromise though, it needs to be removed. Attestations Medical Necessity Statement*: Positive blood cultures. Pending identification and sensitivity information before making a decision on antibiotic regimen. Coding Level of Care Code Acute Tool Programmer for [facility] Fwd Diagnoses Bacteremia R78.81 Left ureteral calculus N20.1 Cystitis cystica N30.80 Retained ureteral stent Z96.0 Time Spent (min) 40 Comment Greater than 50% counseling Chart chart, lab, imaging review, documentation
[2022-09-24 11:40] VITALS: BP 117/77; PULSE 84; RESP 16; TEMP 36.4; O2SAT 98
[2022-09-24 15:27] VITALS: BP 122/80; PULSE 78; RESP 16; TEMP 36.6; O2SAT 98
[2022-09-24 20:00] VITALS: BP 125/78; PULSE 72; RESP 16; RESP 17; TEMP 37.3; O2SAT 94
[2022-09-25] VITALS: BP 106/69; PULSE 71; RESP 17; TEMP 36.8; O2SAT 94
[2022-09-25 02:24] LABS: Basophils # 0.1 10^3/uL (0.0-0.1); Basophils % 0.8 %; Eosinophils # 0.2 10^3/uL (0.0-0.8); Eosinophils % 3.4 %; Hematocrit 28.1 % (37.0-47.0); Hemoglobin 8.8 g/dL (11.5-15.3); Lymphocytes # 1.9 10^3/uL (0.8-4.8); Lymphocytes % 31.3 %; Mean Corpuscular HGB Conc 31.3 g/dL (30.0-36.0); Mean Corpuscular Hemoglobin 29.4 pg (28.0-34.0); Mean Platelet Volume 10.8 fL (7.4-10.4); Monocytes # 0.6 10^3/uL (0.2-0.9); Monocytes % 9.8 %; Neutrophils # 3.21 10^3/uL (1.8-7.7); Nucleated Red Blood Cells % 0 %; Platelet Count 186 10^3/cmm (130-400); Red Blood Count 2.99 10^6/uL (4.1-5.3); Red Cell Distribution Width 14.3 % (12.1-15.1); White Blood Count 5.9 10^3/uL (4.0-10.0)
[2022-09-25 02:59] LABS: Anion Gap 11.8 (5-19); Blood Urea Nitrogen 9 mg/dL (6-20); Calcium 7.9 mg/dL (8.5-10.5); Carbon Dioxide 25 mmol/L (22-29); Chloride 108 mmol/L (98-107); Glomerular Filtration Rate 95.2 mL/min (90-130); Glucose 130 mg/dL (65-115); Osmolality Calculated 292 mOsm/kg (285-295); Potassium 3.8 mmol/L (3.5-5.1); Sodium 141 mmol/L (136-145)
[2022-09-25 04:00] VITALS: BP 102/62; PULSE 75; RESP 17; TEMP 36.9; O2SAT 94
[2022-09-25] MEDS: cefTRIAXone 1,000 MG in sodium chloride 0.9% (plus) 50 ML 100 MG IV (05:36)
[2022-09-25 07:24] VITALS: BP 132/82; PULSE 71; RESP 16; TEMP 36.9; O2SAT 92
[2022-09-25] MEDS: sennosides-docusate Tablet 1 TAB PO (08:45)
--- NOTE | 2022-09-25 10:10 | P.DS_ITS ---
Discharge Providers Date of Admission: 09/22/22 17:03 Date of Discharge: September 25, 2022 Attending Provider at Admission: Serena Sears MD Attending Provider at Discharge: Serena Sears MD Diagnoses at Discharge Discharge Diagnosis (1) Bacteremia: Status: Acute (2) Left ureteral calculus: Status: Resolved Permanent problem details: 4 mm left distal ureteral stone with mild obstructive changes diagnosed August 2022. Endoscopic removal. Complicated by UTI. (3) Cystitis cystica: Status: Acute (4) Retained ureteral stent: Status: Acute Reason for Visit Reason for Visit: lower left back/flank pain Hospital Course Hospital Course 37-year female who was admitted for management and evaluation of UTI, 4mm ureteral stone status post ureteroscopic stone extraction left distal ureter urine and blood cultures positive with E. coli which is pansensitive. Repeat cultures negative to date, she was not septic, she remained afebrile throughout hospitalization other than 1 episode of fever 101.4 on the day of admission. She will be discharged on 3 weeks of levofloxacin. She has been given instructions to follow-up with urologist as [place]. She will follow-up with Dr. Cole I have given her a work note and a referral. Dr. Luna has also emphasized the importance of ureteral stent removal within 7 to 10 days. She will need prolonged antibiotic course for chronic cystitis cystica. Physical Exam Narrative: obese female sitting in her bed comfortably is at the bedside No active signs of emesis Currently doing well on room air S1, S2 Euvolemic EOMI, PERRLA Nonfocal neuro exam No signs of edema CVA tenderness has improved Discharge Data Studies Completed and Pending Completed Studies During Hospitalization Category Date Time Status CT kidney stone [id number] Stat Cat Scan 09/22/22 13:14 Completed XR KUB [id number] Stat Exams 09/23/22 06:00 Completed Pending at discharge Category Date Time Status Blood Culture Stat Lab 09/24/22 10:10 Results Blood Culture Stat Lab 09/22/22 17:27 Results Stone Analysis Routine Lab 09/23/22 09:11 Received Pathology: Surgical [PTH] Routine Pth 09/23/22 09:11 Received Radiology Impressions Abdomen/Pelvis CT 09/22/22 13:14 IMPRESSION: There is a 0.4 cm calcification at the left UVJ resulting in mild left hydroureteronephrosis. KUB X-Ray 09/23/22 06:00 IMPRESSION: Similar tiny calcification projecting over the left aspect of the pelvis, which may be positioned at the left ureterovesical junction. C-Arm Fluoroscopy 09/23/22 07:53 IMPRESSION: Intraoperative imaging during ureteroscopy. Laboratory Results WBC 5.9 10^3/uL (4.0-10.0) 09/25/22 01:53 RBC 2.99 10^6/uL (4.1-5.3) L 09/25/22 01:53 Hgb 8.8 g/dL (11.5-15.3) L 09/25/22 01:53 Hct 28.1 % (37.0-47.0) L 09/25/22 01:53 MCV 94.0 fl (81-99) 09/25/22 01:53 MCH 29.4 pg (28.0-34.0) 09/25/22 01:53 MCHC 31.3 g/dL (30.0-36.0) 09/25/22 01:53 RDW 14.3 % (12.1-15.1) 09/25/22 01:53 Plt Count 186 10^3/cmm (130-400) 09/25/22 01:53 MPV 10.8 fL (7.4-10.4) H 09/25/22 01:53 Neut % (Auto) 54.0 % 09/25/22 01:53 Lymph % (Auto) 31.3 % 09/25/22 01:53 Louisa % (Auto) 9.8 % 09/25/22 01:53 Eos % (Auto) 3.4 % 09/25/22 01:53 Baso % (Auto) 0.8 % 09/25/22 01:53 Neut # (Auto) 3.21 10^3/uL (1.8-7.7) 09/25/22 01:53 Lymph # (Auto) 1.9 10^3/uL (0.8-4.8) 09/25/22 01:53 Louisa # (Auto) 0.6 10^3/uL (0.2-0.9) 09/25/22 01:53 Eos # (Auto) 0.2 10^3/uL (0.0-0.8) 09/25/22 01:53 Baso # (Auto) 0.1 10^3/uL (0.0-0.1) 09/25/22 01:53 Nucleated RBC % (auto) 0 % 09/25/22 01:53 Nucleated RBCs # 0.0 /100WBC 09/25/22 01:53 Sodium 141 mmol/L (136-145) 09/25/22 01:53 Potassium 3.8 mmol/L (3.5-5.1) 09/25/22 01:53 Chloride 108 mmol/L (98-107) H 09/25/22 01:53 Carbon Dioxide 25 mmol/L (22-29) 09/25/22 01:53 Anion Gap 11.8 (5-19) 09/25/22 01:53 BUN 9 mg/dL (6-20) 09/25/22 01:53 Creatinine 0.7 mg/dL (0.5-0.9) 09/25/22 01:53 GFR Calculation 95.2 mL/min (90-130) 09/25/22 01:53 Glucose 130 mg/dL (65-115) H 09/25/22 01:53 Estimat Average Glucose 108 09/22/22 13:15 Hemoglobin A1c 5.4 % (4.0-6.0) 09/22/22 13:15 Calculated Osmolality 292 mOsm/kg (285-295) 09/25/22 01:53 Lactate 0.9 mmol/L (0.5-2.2) 09/23/22 22:30 Calcium 7.9 mg/dL (8.5-10.5) L 09/25/22 01:53 Magnesium 2.0 mg/dL (1.7-2.3) 09/23/22 22:30 Total Bilirubin 0.6 mg/dL (0.15-1.2) 09/22/22 13:18 AST 26 U/L (0-32) 09/22/22 13:18 ALT 39 U/L (0-33) H 09/22/22 13:18 Alkaline Phosphatase 92 U/L (35-105) 09/22/22 13:18 C-Reactive Protein 226.1 mg/L (0.0-4.9) H 09/23/22 22:30 Total Protein 7.3 g/dL (6.6-8.7) 09/22/22 13:18 Albumin 4.5 g/dL (3.5-5.2) 09/22/22 13:18 Globulin 2.8 g/dL (1.3-4.6) 09/22/22 13:18 Lipase 40 U/L (13-60) 09/22/22 13:18 Procalcitonin 0.07 ng/mL (0-0.5) 09/22/22 13:15 HCG, Qual Negative (Negative) 09/22/22 16:18 Urine Color Yellow (Yellow) 09/22/22 16:18 Urine Appearance Cloudy (CLEAR) A 09/22/22 16:18 Urine pH 6 (5-7) 09/22/22 16:18 Ur Specific [place] 1.015 (1.005-1.030) 09/22/22 16:18 Urine Protein 1+ (Negative) H 09/22/22 16:18 Urine Glucose (UA) Norm (Normal) 09/22/22 16:18 Urine Ketones Negative (Negative) 09/22/22 16:18 Urine Blood 3+ (Negative) H 09/22/22 16:18 Urine Nitrate Positive (Negative) H 09/22/22 16:18 Urine Bilirubin Neg (Negative) 09/22/22 16:18 Urine Urobilinogen 1 mg/dL (Negative) H 09/22/22 16:18 Ur Leukocyte Esterase 1+ (Negative) H 09/22/22 16:18 Urine RBC 40-50 /hpf (0-2) H 09/22/22 16:18 Urine WBC 15-25 /hpf (0-5) H 09/22/22 16:18 Ur Squamous Epith Cells 0-4 /hpf (0-5) H 09/22/22 16:18 Amorphous Sediment Not Reportable 09/22/22 16:18 Urine Bacteria 4+ /hpf (NONE) H 09/22/22 16:18 Vitals Last Vital Signs Temp 98.4 F 09/25/22 07:24 Pulse 71 09/25/22 07:24 Resp 16 09/25/22 07:24 BP 132/82 09/25/22 07:24 Pulse Ox 92 09/25/22 07:24 O2 Del Method 09/25/22 07:24 O2 Flow Rate 2 09/23/22 09:15 Discharge Plan Discharge Patient Disposition: Home Condition: Stable Prescriptions: New tramadol 100 mg tablet extended release 24 hr 100 mg PO DAILY PRN (Reason: flank pain) Qty: 10 0RF levofloxacin 750 mg tablet 750 mg PO Q24H 21 Days Qty: 21 0RF Discharge Orders: Discharge Order (Routine); Ordered 09/25/22 Ordered By: Serena Sears Referrals: dr fred [Other] - 7-10 days (removal of ureteral stent ) Joshua Luna MD [Physician] - (Please schedule a follow-up visit with a local urologist in [place] for about a week to 10 days for stent removal. It is important to bring your records and CD to their office so that they can be updated on what was done here. If they have questions they can call me at [phone] ) Discharge Diet: Usual diet Discharge Activity: Increase activity as tolerated Patient Instructions: Opioid Safety Activity Restrictions/Additional Instructions: UROLOGY instructions: 1. The procedure went very well. The stone was removed without having to fragment it. 2. A left ureteral stent was left indwelling and needs to be removed sometime in the next 7 to 10 days. This requires a urologist. Please contact your primary care close to home for recommendations of urology in your area. If the stent is not removed it will become calcified and be extremely difficult to remove necessitating multiple procedures etc. This is critically important to follow through on. 3. You will be provided copies of the pertinent information including H&P, consult note, op note, and discharge summaries. He will also be provided a CD that includes the films taken here which will be important to the urologist that you see back in [place]. Please make sure you bring those records with you to that visit. 4. The stent will create urgency, frequency, blood in the urine, and possibly some left flank pain during voiding. These are normal stent symptoms. They go away when the stent is removed. 5. Your bladder showed evidence of an CHRONIC BLADDER INFECTION specifically called CHRONIC CYSTITIS CYSTICA. This finding necessitates a more prolonged course of antibiotics. A prescription for about 3 weeks of antibiotics will be sent home with you. It is important to take the complete course. Your follow- up urologist can make decisions at that point whether to continue beyond that timeframe. Discharge Attestations Time Spent in Discharge Care*: less than 30 min Quality Metrics Clinical Quality Measures [ No reported AMI, CVA or VTE this stay] Coding Level of Care Code Acute Chg FW DC note Diagnoses Bacteremia R78.81 Left ureteral calculus N20.1 Cystitis cystica N30.80 Retained ureteral stent Z96.0
--- NOTE | 2022-09-25 10:18 | P.MISC_ITS ---
Miscellaneous Note Purpose of Documentation: Work note Note: 47-year-old female who was admitted to the hospital for management of infection related to her kidney stone, she underwent urological intervention for removal of her stent, will require 3 weeks of p.o. antibiotics at the time of discharge. She spent 4 days in the hospital for management of her infection related to kidney stones and UTI. Should you have any questions please do not hesitate [facility].
[2022-09-25 11:01] VITALS: BP 132/82; PULSE 71; RESP 16; TEMP 36.9; O2SAT 92
[2022-09-25 11:12] VITALS: BP 115/81; PULSE 76; RESP 16; TEMP 36.8; O2SAT 97
[2022-10-01 12:49] LABS: Stone Source LEFT URETER
== END 2022-09-25 11:30 | disposition home or self-care (01) | DRG 660 ==
LOC: ER 17:10 → MEDSURG 17:43
PROVIDERS: Family Medicine; Urology; Admitting Provider Internal Medicine; Emergency Provider Registered Nurse; Visit Provider Internal Medicine
PROC: 0TJB8ZZ Inspection of Bladder, Via Natural or Artificial Opening Endoscopic (ICD-10-PCS; CPT 52000; principal; 2022-09-23 08:00)
PROC: 0T778DZ Dilation of Left Ureter with Intraluminal Device, Via Natural or Artificial Opening Endoscopic (ICD-10-PCS; CPT 74420; 2022-09-23 08:00)
PROC: 0TJ98ZZ Inspection of Ureter, Via Natural or Artificial Opening Endoscopic (ICD-10-PCS; CPT 52351; 2022-09-23 08:00)
PROC: 0T778DZ Dilation of Left Ureter with Intraluminal Device, Via Natural or Artificial Opening Endoscopic (ICD-10-PCS; CPT 50605; 2022-09-23 08:00)
DX: N13.2 Hydronephrosis with renal and ureteral calculous obstruction (principal); Z68.42 Body mass index [BMI] 45.0-49.9, adult; N30.20 Other chronic cystitis without hematuria; B96.20 Unspecified Escherichia coli [E. coli] as the cause of diseases classified elsewhere; E66.9 Obesity, unspecified
CPT/HCPCS: 36415; 74018; 74176; 76000; 80048; 80053; 81001; 81025; 82365; 83036; 83605; 83690; 83735; 84145; 85025; 86140; 87040; 87077; 87086; 87150; 87186; 87205; 88300; 96365; 96375; 99285; J0330; J0696; J1100; J1170; J1630; J1885; J1980; J2270; J2405; J2704; J7030